=== PATIENT | female | born 1990 | race Caucasian/White ===

== ENCOUNTER 2017-03-04 23:30 | Emergency (ER) | payer OTHER ==
[~2017-03-04] VITALS: Ht 160 cm; Wt 122.0 kg
[~2017-03-04 23:30] MED LIST: PEDICHW50 PO
[2017-03-04 23:43] VITALS: TEMP 36.8; Ht 160 cm; Wt 122.0 kg
[2017-03-05] MEDS ORDERED: RANITIDINE HCL 150 MG TAB PO STA (00:02)
[2017-03-05] MEDS ORDERED: PRD/1 PO (00:05)
[2017-03-05] MEDS ORDERED: ZNTT/150 PO (00:07)
--- NOTE | 2017-03-05 00:07 | EMERGENCY ROOM VISIT NOTE ---
History Report prepared by Home: Lester Hough Under the Supervision of: Dr. David Paredes M.D. First contact with patient: 23:53 Chief Complaint: ALLERGIC REACTION Stated Complaint: BREAKING OUT IN BAD HIVES EVERYWHERE History of Present Illness The patient is a 27 year old female who presents to the Emergency Room with complaints of a worsening allergic reaction that began over 24 hours ago. At this time, the patient was experiencing a mild case of hives to her abdomen and lower legs. This morning, she went to the ED in [facility] and was given a prescription for Prednisone 50 mg for five days. This evening, her hives have worsened to her entire legs and more diffusely on her abdomen as well. She states that the hives are itchy. She has not taken anything else for her symptoms other than the Prednisone. She has a known allergy to Oxycodone and Hydrocodone, which she has not taken. She does not have any known food allergies , and she denies any new exposures to medications or bites/stings. This is the first time that this has happened to her. She denies any throat swelling or shortness of breath. She has a history of migraines and has been on Gabapentin for the past month. She denies any other medical problems. Source of History: patient Onset: Over 24 hours ago Position: other (global) Symptom Intensity: moderate Quality: other (Hives/itching) Timing: worsening Associated Symptoms: No SOB Note: She denies any mouth or throat swelling. Her skin is itchy. Review of Systems See HPI for pertinent positives & negatives. A total of 10 systems reviewed and were otherwise negative. Past Medical & Surgical Medical Problems: (1) History of migraine Family History Patient reports no known family medical history. Social History Smoking Status: Never Smoker Smokeless Tobacco Use: No Drug Use: none Marital Status: Housing Status: lives with significant other Occupation Status: employed Current/Historical Medications Scheduled Prednisone (Prednisone), PO UD Ranitidine (Zantac), 150 MG PO BID Allergies Coded Allergies: No Known Allergies (Unverified , 03/05/17) Physical Exam Vital Signs Date Time Temp Pulse Resp B/P (MAP) Pulse Ox O2 Delivery O2 Flow Rate FiO2 03/05/17 00:16 98 18 126/74 97 03/04/17 23:58 115 03/04/17 23:53 Room Air 03/04/17 23:43 36.8 97 18 143/83 98 Room Air Physical Exam GENERAL: Patient is in no acute distress. HEENT: No acute trauma, normocephalic atraumatic, mucous membranes moist, no nasal congestion, no scleral icterus. No uvular edema. NECK: No stridor, no adenopathy, no meningismus, trachea is midline. LUNGS: Clear to auscultation bilaterally, no wheeze, no rhonchi, breath sounds equal. HEART: Mildly tachycardic with a regular rhythm, no murmurs. ABDOMEN: Soft, nontender, bowel sounds positive, no hernias, no peritonitis. EXTREMITIES: No cyanosis or edema, full range of motion of all the joints without pain or difficulty, no signs for acute trauma. NEUROLOGIC: Oriented x 3, no acute motor or sensory deficits, no focal weakness. SKIN: Raised erythematous lesions across the extremities, chest, and back. They do hussain. No jaundice. No cellulitis. Lesions consistent with hives. Medical Decision & Procedures Medications Administered Medications (Trade) Dose Ordered Sig/Blanca Route Start Time Stop Time Status Last Admin Dose Admin Diphenhydramine HCl (Benadryl Cap) 50 mg NOW ONCE PO 03/05/17 00:15 03/05/17 00:16 DC 03/05/17 00:14 50 MG Ranitidine HCl (zANTac TAB) 150 mg NOW STAT PO 03/05/17 00:02 03/05/17 00:03 DC 03/05/17 00:07 150 MG ED Course 2353: The patient was evaluated in room B9. A complete history and physical exam was performed. 0002: Ordered Ranitidine HCl 150 mg PO 0015: Benadryl Cap 50 mg PO 0025: Reevaluated the patient. Discussed results and discharge instructions: She verbalized understanding and agreement. The patient is ready for discharge. Medical Decision Differential diagnosis includes but is not limited to foodborne allergy, environmental allergy, medication reaction, viral illness, and urticaria. The patient presents with hives/urticaria. She has no idea what may have caused the hives. She is not short of breath. There is no uvular edema. She already took one dose of prednisone. Patient was given oral Benadryl and oral Zantac, she will be discharged on these meds in addition to the prednisone. I do not think she demonstrates any findings of anaphylaxis. She was encouraged to avoid hot showers and hot environments. If she feels short of breath or feels like she is worsening, she can return. Allergy testing in the future was recommended. Medication Reconcilliation Current Medication List: was personally reviewed by me Blood Pressure Screening Patient's blood pressure: Elevated blood pressure Blood pressure disposition: Elevated BP felt to be situational Impression Primary Impression: Urticaria Scribe Attestation The scribe's documentation has been prepared under my direction and personally reviewed by me in its entirety. I confirm that the note above accurately reflects all work, treatment, procedures, and medical decision making performed by me. Departure Information Dispostion Home / Self-Care Prescriptions Ranitidine (Zantac) 150 Mg Tab 150 MG PO BID for 7 Days, #14 TAB Prov: David Paredes M.D. 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
[2017-03-05 00:16] VITALS: BP 126/74; PULSE 98; O2SAT 97
== END 2017-03-05 00:16 | disposition home or self-care (01) ==
LOC: C.EDB 23:33 → MERGE 23:33 → C.EDB 03-05 00:16
DX: L50.9 Urticaria, unspecified (principal)

== ENCOUNTER 2017-11-19 11:46 | Emergency (ER) | payer OTHER ==
[~2017-11-19] VITALS: Ht 160 cm; Wt 120.7 kg
[~2017-11-19 11:46] MED LIST changes: +PRD/1 PO
[2017-11-19 11:54] VITALS: Ht 160 cm; Wt 120.7 kg
[2017-11-19] MEDS ORDERED: IBUPROFEN 600 MG TAB PO STA (12:14)
--- NOTE | 2017-11-19 12:48 | DIAGNOSTIC IMAGING REPORT ---
R HAND MIN 3 VIEWS ROUTINE CLINICAL HISTORY: hand pain pain COMPARISON: None. DISCUSSION: The bones and joint spaces appear intact. There is no evidence of fracture, dislocation or bony disease. There is no evidence for soft tissue swelling. IMPRESSION: Negative study. The above report was generated using voice recognition software. It may contain grammatical, syntax or spelling errors. Electronically signed by: Dougie Vail M.D. 11/19/2017 12:47 PM Dictated Date/Time: 11/19/2017 12:47 PM
--- NOTE | 2017-11-19 13:09 | EMERGENCY ROOM VISIT NOTE ---
ED Visit Note First contact with patient: 12:05 CHIEF COMPLAINT: Hand injury HISTORY OF PRESENT ILLNESS: This 27-year-old female patient presented to the emergency department, ambulatory, complaining of right hand pain. She states the pain began yesterday morning upon awakening and going to work. She states this morning it seemed to become worse. The pain is worse with closing or bending at the wrist, and does radiate into the wrist. She denies any recent injury. She denies any significant swelling, redness, or drainage. She denies any open wounds or fracture. She does have a history of carpal tunnel syndrome , did have carpal tunnel release performed in bilateral wrists. The patient rates the pain as sharp and 9/10. The patient denies any numbness or tingling. The patient does not have injuries to the wrist. The patient has not had a previous fracture to this hand. REVIEW OF SYSTEMS: A 6 system review of systems was completed with positives and pertinent negatives in the HPI. ALLERGIES: Hydrocodone, oxycodone MEDICATIONS: Celexa PMH: Depression SOCIAL HISTORY: The patient lives locally with family. She denies drug, alcohol , tobacco use. PHYSICAL EXAM: Vital Signs: Reviewed Nurse's notes, vital signs stable. GENERAL : This is a 27-year-old white female, in no acute distress, but appears to be in pain, well-developed, well-nourished. MUSCULOSKELETAL: There is no deformity of the right hand. There is tenderness on palpation of the metacarpals. There is no thenar or hypothenar eminence atrophy. Normal thumb opposition to all fingers. Housing Project Manager strength 5/5. There is no laceration. Capillary refill less than 2 seconds. No tenderness of the fingers or wrist. Full range of motion of the wrist. No snuff box tenderness. Radial pulse 2+. NEURO: Alert and oriented to person, place, and time. Normal sensation to light and sharp touch. RADIOLOGY: R HAND MIN 3 VIEWS ROUTINE CLINICAL HISTORY: hand pain pain COMPARISON: None. DISCUSSION: The bones and joint spaces appear intact. There is no evidence of fracture, dislocation or bony disease. There is no evidence for soft tissue swelling. IMPRESSION: Negative study. The above report was generated using voice recognition software. It may contain grammatical, syntax or spelling errors. Electronically signed by: Dougie Vail M.D. 11/19/2017 12:47 PM Dictated Date/Time: 11/19/2017 12:47 PM EMERGENCY DEPARTMENT COURSE: I examined the patient. An x-ray of the right hand was reviewed by myself and radiologist and shows no acute fracture or soft tissue swelling. I suspect either a contusion or sprain. I did consider Lyme disease or gout, however there is no swelling, redness, or other symptoms. The patient was offered a wrist lacer splint for comfort, and she does agree to using this splint. She does feel that this will be beneficial. She was encouraged to follow-up outpatient with her PCP/orthopedic surgeon. The patient verbalized understanding. I did recommend anti-inflammatory medications scheduled for the next 2-3 days and wearing the brace at least at night to sleep. The patient was agreeable. All questions were answered to her satisfaction. She was provided with a note for work at her request. Discharge instructions reviewed. The patient was discharged home in good condition. I attest that I have personally reviewed the patient's current medication list. Patient was found to have normal blood pressure on screening and does not require follow-up. Etiologies such as soft tissue injury, Lyme disease, gout, fracture, dislocation , neurovascular compromise, compartment syndrome, as well as others were entertained. DIAGNOSIS: right hand pain The chart was completed utilizing [employer] voice recognition software. Grammatical errors, random word insertions, pronoun errors, and incomplete sentences are an occasional consequence of this system due to software limitations, ambient noise, and hardware issues. Any formal questions or concerns about the content, text, or information contained within the body of this dictation should be directly addressed to the provider for clarification. Problem List Medical Problems: (1) Depression Status: Chronic (2) History of migraine Status: Chronic Surgical Problems: (1) History of delivery Status: Resolved Current/Historical Medications Scheduled Citalopram Hydrobromide (Celexa), 20 MG PO DAILY Gabapentin (Neurontin), 2 TAB PO DAILY Allergies Coded Allergies: Oxycodone (Verified Adverse Reaction, Mild, other, 11/19/17) Hydrocodone (Verified Adverse Reaction, Unknown, ., 11/19/17) Vital Signs Date Time Temp Pulse Resp B/P (MAP) Pulse Ox O2 Delivery O2 Flow Rate FiO2 11/19/17 13:28 37.0 84 20 146/81 99 11/19/17 13:27 84 20 146/81 99 Room Air 11/19/17 11:54 37.0 90 20 143/88 99 Room Air Medications Administered Medications (Trade) Dose Ordered Sig/Blanca Route Start Time Stop Time Status Last Admin Dose Admin Ibuprofen (Motrin Tab) 600 mg NOW STAT PO 11/19/17 12:14 11/19/17 12:16 DC 11/19/17 12:32 600 MG Departure Information Impression Primary Impression: Right hand pain Dispostion Home / Self-Care Condition GOOD Referrals No Doctor, Assigned (PCP) Forms HOME CARE DOCUMENTATION FORM, Days off work: 1 Work Instructions, Return To Work: 1 day Additional Instructions: Pt. was seen in the ED on 11/19/17. Please excuse her from work on this day She may return on 11/20/17. Thank you, Keke Lanier PA-C IMPORTANT VISIT INFORMATION Patient Instructions ED Sprain Hand, My [facility] Additional Instructions You were seen in the ED today for right hand pain. Imaging did not reveal any obvious signs of fracture. I suspect a sprain/strain or contusion. Ibuprofen(Motrin, Advil) may be used for fever or pain. Use 600mg every six hours as needed. Take with food. Avoid using more than 2400mg in a 24 hour period. Do not use 2400mg per day for more than three consecutive days without physician direction. Prolonged inappropriate use can lead to stomach upset or ulcers. (AND/OR) Acetaminophen(Tylenol) may be used for fever or pain. Use 1000mg every six hours as needed. Avoid using more than 3000mg in a 24 hour period. Ice compresses for 20 minutes at a time four times daily for 2-3 days. Use the wrist splint for comfort. Rest and elevate your injury. Return to the ER immediately for any numbness, tingling, severe pain, extreme swelling in the extremity or as needed. Call [facility], [phone], or your orthopedic surgeon if no improvement in 1 week, to arrange follow up for your injury. Follow-up with your primary care physician in 2 to 3 days for a recheck of your current condition. Work Instructions Return To Work: 1 day Additional Work Instructions: Pt. was seen in the ED on 11/19/17. Please excuse her from work on this day. She may return on 11/20/17. Thank you, Keke Lanier PA-C
[2017-11-19] MEDS ORDERED: GABA-112 PO (13:20)
[2017-11-19] MEDS ORDERED: CITA20TA9 PO (13:20)
[2017-11-19 13:28] VITALS: BP 146/81; PULSE 84; TEMP 37; O2SAT 99
== END 2017-11-19 13:29 | disposition home or self-care (01) ==
LOC: C.EDB 11:48 → C.EDD 13:29
DX: M79.641 Pain in right hand (principal); F32.9 Major depressive disorder, single episode, unspecified; Z88.5 Allergy status to narcotic agent; Z98.890 Other specified postprocedural states; Z98.891 History of uterine scar from previous surgery; Z79.899 Other long term (current) drug therapy